=== PATIENT | female | born 1950 | race Caucasian/White ===

== ENCOUNTER 2018-09-01 09:03 | Observation (INO) ==
[2018-09-01] MEDS ORDERED: Nitroglycerin 0.4 MG TAB.SUBL SL ONE (09:16)
[2018-09-01] MEDS ORDERED: Aspirin 81 MG TAB.CHEW PO ONE (09:16)
--- NOTE | 2018-09-01 09:22 | Emergency Department Note ---
Disposition Clinical Impression: Chest pain Qualifiers: Chest pain type: unspecified Qualified Code(s): R07.9 - Chest pain, unspecified Disposition: Admitted As Inpatient Condition: Fair Time of Disposition: 19:45 General Adult HPI - General Chief complaint: ED Chest Pain Stated complaint: Chest Pain Time Seen by Provider: 09/01/18 09:04 Source: patient, EMS Mode of arrival: EMS Limitations: no limitations Nursing Notes Reviewed: Yes Vital Signs Reviewed: Yes - History of Present Illness HPI Narrative: Patient is a 67-year-old female past medical history of hypertension is the primary for evaluation of chest pressure that started at 7:00 AM this morning. Patient states that she is brushing her teeth when she had gradual onset of substernal, pressure-like pain with radiation to the left arm. States at that time the intensity was a 7/10. States he take a shower to see without improve her pain in which it did not. States that she checked her blood pressure at home and she was in 180s systolic and her heart rate was also mildly elevated. Upon arrival to the emergency department the patient states her symptoms have almost resolved. She received no aspirin or nitroglycerin. States her intensity is now a 2/10. States that she has had a stress test in the past but none recently. Pain Scale: 2 - Related Data Home Medications Medication Instructions Recorded Confirmed Anastrozole [Arimidex] 1 mg PO DAILY 09/01/18 09/01/18 Ca/D3/Mag#11/Zinc/Swaging Machine Adjuster/Tray/Bor 1 each PO DAILY 09/01/18 09/01/18 [Caltrate 600+D Plus Tablet] Calcium Polycarbophil [Fibercon] 1,250 mg PO BID 09/01/18 09/01/18 Celecoxib [Celebrex] 200 mg PO BID 09/01/18 09/01/18 Cetirizine HCl [Zyrtec] 10 mg PO DAILY 09/01/18 09/01/18 Cyanocobalamin (B-12) [Vitamin B12] 1,000 mcg IM QMONTH 09/01/18 09/01/18 Lisinopril/Hydrochlorothiazide 1 tab PO DAILY 09/01/18 09/01/18 [Zestoretic 20-25 mg Tablet] Pantoprazole Sodium 40 mg PO DAILY 09/01/18 09/01/18 Allergies Allergy/AdvReac Type Severity Reaction Status Date / Time No Known Allergies Allergy Verified 05/02/18 09:33 All systems ED: reviewed and negative except as stated. Review of Systems: As Per HPI Constitutional: Denies: fever, chills Cardiovascular: Denies: chest pain, palpitations, dyspnea on exertion Respiratory: Reports: cough (Chronic). Denies: dyspnea, wheezes, sputum production Gastrointestinal: Denies: abdominal pain, nausea, vomiting Musculoskeletal: Denies: back pain, neck pain Integumentary: Denies: rash Past Medical History - Past Medical History Attestation: Yes The following information was validated with the patient. Medical history: Reports: cancer, hypertension - Social History Smoking Status: Never smoker Smokeless Tobacco Status: No Alcohol use: Reports: none Drug use: Reports: none Physical Exam CONSTITUTIONAL: Well-appearing; well-nourished; A&O X 3, in no apparent distress HEAD: Normocephalic; atraumatic EYES: PERRL, no scleral icterus NOSE: The nose is normal in appearance without rhinorrhea NECK: No JVD or distended neck veins RESP: Normal chest excursion with respiration; breath sounds clear and equal bilaterally; no wheezes, rhonchi, or rales CARD: Regular rhythm, without murmurs, rub or gallop ABD: Non-distended; non-tender, soft, without rigidity, rebound or guarding,no pulsatile mass CHEST: No pain with palpation SKIN: Normal for age and race; warm and dry without diaphoresis ; no apparent lesions EXTREMITIES: Pulses are 2 plus and equal times 4 extremities, no peripheral edema or calf muscle pain - General Limitations: no limitations General appearance: alert, in no apparent distress Course Course Narrative: Patient will undergo evaluation for her chest pain. Given that her symptoms are moderately suspicious for cardiac ideology, her age as well as her risk factors she is presenting as a moderate HEART score. The patient's will need to come in for further evaluation pending results of labs and imaging. Her initial EKG is nonischemic at this time. She will be given a full dose of aspirin as well as nitroglycerin trial. Vital Signs Temperature 97.9 F 09/01/18 09:07 Pulse Rate 86 09/01/18 09:07 Respiratory Rate 16 09/01/18 09:07 Blood Pressure 179/87 09/01/18 09:07 O2 Sat by Pulse Oximetry 100 09/01/18 09:07 Temperature 98.3 F 09/01/18 13:30 Pulse Rate 83 09/01/18 13:30 Respiratory Rate 16 09/01/18 13:30 Blood Pressure 134/74 09/01/18 13:30 O2 Sat by Pulse Oximetry 96 09/01/18 13:30 Oxygen Delivery Oxygen Delivery Room Air Medical Decision Making - Medical Records Medical records reviewed: Yes I reviewed the patient's medical records. - Lab Data Lab results reviewed: Yes I reviewed the patient's lab results. Result diagrams: 09/01/18 10:22 09/01/18 10:22 Lab Results 09/01/18 09/01/18 Range/Units 10:22 10:22 WBC 8.7 (4.3-11.1) K/mcL RBC 4.06 (3.82-4.97) M/mcL Hgb 11.1 L (11.5-15.4) g/dL Hct 34.2 L (35.3-44.9) % MCV 84.2 (83.0-100.0) fL MCH 27.3 L (28.0-33.3) pg MCHC 32.5 (31.6-35.5) g/dL RDW 15.0 H (11.5-14.5) % Plt Count 277 (140-400) K/mcL MPV 10.7 (9.4-12.4) fL Immature Gran % 0.3 (0-4) % Seg Neutrophils % 85.2 % Lymphocytes % 9.0 % Monocytes % 4.4 % Eosinophils % 0.6 % Basophils % 0.5 % Neutrophils # 7.4 (1.6-8.9) K/mcL Lymphocytes # 0.8 (0.6-4.6) K/mcL Monocytes # 0.4 (0.0-1.3) K/mcL Eosinophils # 0.1 (0.0-0.6) K/mcL Basophils # 0.0 (0.0-0.2) K/mcL Sodium 136 (136-145) mEq/L Potassium 3.8 (3.5-5.1) mEq/L Chloride 103 (98-107) mEq/L Carbon Dioxide 27 (23-29) mEq/L BUN 16 (8-23) mg/dL Creatinine 0.73 (0.60-1.20) mg/dL Est GFR ( Amer) > 60 (> 60) Est GFR (Non-Af Amer) > 60 (> 60) BUN/Creatinine Ratio 22 (6-26) Glucose 123 H (70-105) mg/dL Calculated Osmolality 285 (280-300) Calcium 9.5 (8.6-10.3) mg/dL Troponin I < 0.03 (< 0.04) ng/mL - Radiology Data Radiology results reviewed: Yes I reviewed the patient's radiology results. Chest X-Ray 09/01/18 09:16 IMPRESSION: No acute process. D/ / Christian Granados MD / Christian Granados MD Interpreting Provider: Christian Granados MD - EKG Data EKG #1 EKG attestation: Yes I reviewed and interpreted this EKG. EKG results narrative: EKG done at 9:08 shows sinus rhythm at a rate of 85 bpm. Normal axis. Intervals within normal limits. No signs of ST elevation, ST depression or Q waves present.
[2018-09-01] MEDS ORDERED: 0.9 % Sodium Chloride 500 ML IVC ONE (09:36)
[2018-09-01 10:39] LABS: Basophils % 0.5 %; Eosinophils # 0.1 K/mcL (0.0-0.6); Eosinophils % 0.6 %; Hematocrit 34.2 % (35.3-44.9); Hemoglobin 11.1 g/dL (11.5-15.4); Immature Granulocytes % 0.3 % (0-4); Lymphocytes # 0.8 K/mcL (0.6-4.6); Mean Corpuscular HGB Conc 32.5 g/dL (31.6-35.5); Mean Corpuscular Hemoglobin 27.3 pg (28.0-33.3); Mean Corpuscular Volume 84.2 fL (83.0-100.0); Mean Platelet Volume 10.7 fL (9.4-12.4); Monocytes # 0.4 K/mcL (0.0-1.3); Monocytes % 4.4 %; Neutrophils # 7.4 K/mcL (1.6-8.9); Platelet Count 277 K/mcL (140-400); Red Blood Count 4.06 M/mcL (3.82-4.97); Segmented Neutrophils % 85.2 %
[2018-09-01 10:58] LABS: BUN/Creatinine Ratio 22 (6-26); Blood Urea Nitrogen 16 mg/dL (8-23); Calcium 9.5 mg/dL (8.6-10.3); Carbon Dioxide 27 mEq/L (23-29); Chloride 103 mEq/L (98-107); Glucose 123 mg/dL (70-105); Osmolality,Calculated 285 (280-300); Potassium 3.8 mEq/L (3.5-5.1); Sodium 136 mEq/L (136-145); eGFR For Non-African Americans > 60 (> 60)
[2018-09-01 10:59] LABS: Troponin I < 0.03 ng/mL (< 0.04)
--- NOTE | 2018-09-01 11:27 | Emergency Department Note ---
Disposition Clinical Impression: Chest pain Qualifiers: Chest pain type: unspecified Qualified Code(s): R07.9 - Chest pain, unspecified Disposition: Admitted As Inpatient Condition: Fair Forms: ED Satisfaction Letter General Adult HPI - General Chief complaint: ED Chest Pain Stated complaint: Chest Pain Time Seen by Provider: 09/01/18 09:04 Source: patient, EMS Mode of arrival: EMS Limitations: no limitations - History of Present Illness Pain Scale: 2 - Related Data Home Medications Medication Instructions Recorded Confirmed Anastrozole 05/02/18 Caltrate 600 + D Soft Chew Tab 05/02/18 Celebrex 05/02/18 Fiber 05/02/18 Lisinopril 05/02/18 Prevacid 05/02/18 Vitamin B12 05/02/18 Zyrtec 05/02/18 Previous Rx's Medication Instructions Recorded Amoxicillin 875 mg PO BID #20 tablet 05/02/18 Benzonatate [Tessalon] 200 mg PO TID PRN #20 capsule 05/02/18 Ondansetron ODT [Zofran ODT] 4 mg SL Q6HR PRN #10 tab.rapdis 05/02/18 Pantoprazole Sodium 20 mg PO DAILY #14 tablet. 05/02/18 Allergies Allergy/AdvReac Type Severity Reaction Status Date / Time No Known Allergies Allergy Verified 05/02/18 09:33 Constitutional: Denies: fever, chills Cardiovascular: Denies: chest pain, palpitations, dyspnea on exertion Respiratory: Reports: cough (Chronic). Denies: dyspnea, wheezes, sputum production Gastrointestinal: Denies: abdominal pain, nausea, vomiting Musculoskeletal: Denies: back pain, neck pain Integumentary: Denies: rash Past Medical History - Past Medical History Medical history: Reports: cancer, hypertension - Social History Smoking Status: Never smoker Smokeless Tobacco Status: No Alcohol use: Reports: none Drug use: Reports: none Physical Exam - General Limitations: no limitations General appearance: alert, in no apparent distress Course Vital Signs Temperature 97.9 F 09/01/18 09:07 Pulse Rate 86 09/01/18 09:07 Respiratory Rate 16 09/01/18 09:07 Blood Pressure 179/87 09/01/18 09:07 O2 Sat by Pulse Oximetry 100 09/01/18 09:07 Temperature 97.9 F 09/01/18 09:07 Pulse Rate 86 09/01/18 09:07 Respiratory Rate 16 09/01/18 09:07 Blood Pressure 179/87 09/01/18 09:07 O2 Sat by Pulse Oximetry 100 09/01/18 09:07 Oxygen Delivery Oxygen Delivery Room Air Medical Decision Making - Lab Data Result diagrams: 09/01/18 10:22 09/01/18 10:22 Lab Results 09/01/18 09/01/18 Range/Units 10:22 10:22 WBC 8.7 (4.3-11.1) K/mcL RBC 4.06 (3.82-4.97) M/mcL Hgb 11.1 L (11.5-15.4) g/dL Hct 34.2 L (35.3-44.9) % MCV 84.2 (83.0-100.0) fL MCH 27.3 L (28.0-33.3) pg MCHC 32.5 (31.6-35.5) g/dL RDW 15.0 H (11.5-14.5) % Plt Count 277 (140-400) K/mcL MPV 10.7 (9.4-12.4) fL Immature Gran % 0.3 (0-4) % Seg Neutrophils % 85.2 % Lymphocytes % 9.0 % Monocytes % 4.4 % Eosinophils % 0.6 % Basophils % 0.5 % Neutrophils # 7.4 (1.6-8.9) K/mcL Lymphocytes # 0.8 (0.6-4.6) K/mcL Monocytes # 0.4 (0.0-1.3) K/mcL Eosinophils # 0.1 (0.0-0.6) K/mcL Basophils # 0.0 (0.0-0.2) K/mcL Sodium 136 (136-145) mEq/L Potassium 3.8 (3.5-5.1) mEq/L Chloride 103 (98-107) mEq/L Carbon Dioxide 27 (23-29) mEq/L BUN 16 (8-23) mg/dL Creatinine 0.73 (0.60-1.20) mg/dL Est GFR ( Amer) > 60 (> 60) Est GFR (Non-Af Amer) > 60 (> 60) BUN/Creatinine Ratio 22 (6-26) Glucose 123 H (70-105) mg/dL Calculated Osmolality 285 (280-300) Calcium 9.5 (8.6-10.3) mg/dL Troponin I < 0.03 (< 0.04) ng/mL Attestation Statement - Attestation Attestation: I examined this patient and my medical decision-making was reviewed with the Resident Physician. I agree with the documented findings, disposition and treatment plan as described except to the extent set forth below. 67 year old female prsents to the ED with complaints of chest pain that started earlier this mornign when she was in the shower and had an elevated blood pressure at that time and now her chest pain has resolved in additint to normalization of the blood presusre and heart rate. Sulma has risk factors for ACS and because she has a moderate heart score we will admit to medicine for futher testing. Sulma has been given ASA and will be admitted to medicine
[2018-09-01] MEDS ORDERED: Naloxone 0.4 MG/ML INJ IVP PRN (12:58)
--- NOTE | 2018-09-01 13:13 | Internal Med History&Physical ---
Date of Encounter: 09/01/18 Time of Encounter: 13:10 Internal Medicine - H&P: HPI Chief complaint: chest pain Admitted From: Home History of present illness: Ms. Grande is a 67 year old female with PMH HTN and breast cancer presented to [facility] on 09/01/2018 with complaints of chest pain. She was placed in observation status for further work-up and treatment. Information obtained from chart review and patient report. Patient says she woke up this morning with chest heaviness. Located to the left side and radiated to left arm. She also reported shortness of breath and felt like she was having a hard time catching her breath. Says she got into a shower hoping that would make her feel better however chest heaviness persisted and worsened so the EMS was called. No alleviating or aggravating risk factors. Says she took her blood pressure she was waiting for the EMS in SBP was in the 200s. Says she feels better all my exam, chest pain and shortness of breath completely resolved. Past Med Surg Social Fam HX - Past Medical History Medical history: cancer, hypertension Additional medical history: breast cancer - Past Surgical History Additional surgical history: spinal fusion - Social History Smoking Status: Never smoker Smokeless Tobacco Status: No Alcohol use: none Drug use: none - Family History Mother Hx Family Cardiac Disorders: Yes (htn) Father Hx Family Cardiac Disorders: Yes (mi) Internal Medicine - H&P: Meds Anastrozole [Arimidex] 1 mg PO DAILY 09/01/18 [History] Ca/D3/Mag#11/Zinc/Black Puller/Tray/Bor [Caltrate 600+D Plus Tablet] 1 each PO DAILY 09/01/18 [History] Calcium Polycarbophil [Fibercon] 1,250 mg PO BID 09/01/18 [History] Celecoxib [Celebrex] 200 mg PO BID 09/01/18 [History] Cetirizine HCl [Zyrtec] 10 mg PO DAILY 09/01/18 [History] Cyanocobalamin (B-12) [Vitamin B12] 1,000 mcg IM QMONTH 09/01/18 [History] Lisinopril/Hydrochlorothiazide [Zestoretic 20-25 mg Tablet] 1 tab PO DAILY 09/01/18 [History] Pantoprazole Sodium 40 mg PO DAILY 01/06/19 [History] Allergy/AdvReac Type Severity Reaction Status Date / Time No Known Allergies Allergy Verified 05/02/18 09:33 All Systems PM: A 12-system review of systems was performed and is negative for pertinent findings except as documented above in the HPI. - Cardiovascular Cardiovascular ROS IM: chest pain, dyspnea on exertion - Constitutional Vitals: Temp Pulse Resp BP Pulse Ox 97.9 F 86 18 144/80 100 09/01/18 09:07 09/01/18 09:07 09/01/18 12:34 09/01/18 12:34 09/01/18 09:07 General appearance: Present: A&O X 3, pleasant, no acute distress Exam: . - Head Head exam: Present: atraumatic, normocephalic - Eye Eye exam: Present: PERRL, conjuntiva pink, sclera anicteric Pupils: Present: PERRL - Neck Neck exam general surgery: Present: supple, trachea midline. Absent: lymphadenopathy - Respiratory Respiratory exam: Present: CTAB. Absent: accessory muscle use, rales, rhonchi, wheezes - Cardiovascular Cardiovascular exam: Present: RRR, +S1, +S2. Absent: diastolic murmur, gallop, rubs, systolic murmur - GI/Abdominal GI/Abdominal exam: Present: normal bowel sounds, soft, no peritoneal signs. Absent: distended, tenderness - Extremities Exam Extremities exam: Present: warm, radial pulses palpable and symmetrical. Absent: calf tenderness, cyanotic, pedal edema - Neurological Exam Neurological exam: Present: CN II-XII intact, oriented X3, no focal deficits. Absent: pronater drift, facial droop, speech deficit - Skin Skin exam: Present: dry, intact Internal Med - H&P Results - Labs CBC & Chem 7: 09/01/18 10:22 09/01/18 10:22 Labs: Short CBC 09/01/18 Range/Units 10:22 WBC 8.7 (4.3-11.1) K/mcL Hgb 11.1 L (11.5-15.4) g/dL Hct 34.2 L (35.3-44.9) % Plt Count 277 (140-400) K/mcL Neutrophils # 7.4 (1.6-8.9) K/mcL BMP 09/01/18 10:22 Sodium 136 Potassium 3.8 Chloride 103 Carbon Dioxide 27 BUN 16 Creatinine 0.73 Glucose 123 H Calcium 9.5 Cardiac Enzymes 09/01/18 Range/Units 10:22 Troponin I < 0.03 (< 0.04) ng/mL - Impressions ITS Impressions Chest X-Ray 09/01/18 09:16 IMPRESSION: No acute process. D/ / Christian Granados MD / Christian Granados MD Interpreting Provider: Christian Granados MD - Assessment and plan (1) Chest pain Current Visit: Yes Status: Acute Assessment and plan: presented with chest haviness that started day of arrival; resolved in ED. initial troponin negative. EKG without acute ST changes. Cycle troponins. Check echo. NPO at midnight. Stress test in the morning. Qualifiers: Chest pain type: unspecified Qualified Code(s): R07.9 - Chest pain, unspecified (2) HTN (hypertension) Current Visit: Yes Status: Acute Assessment and plan: per hx. BP elevated in ED. patient also reported BP elevated prior to arrival. Cont home BP medications. Monitor BP and titrate PRN. Add PRN IV hydralazine Qualifiers: Hypertension type: essential hypertension Qualified Code(s): I10 - Essential (primary) hypertension (3) Breast cancer Current Visit: Yes Status: Acute Assessment and plan: per hx. Follows with [facility]. Cont home Arimidex Qualifiers: Breast location: unspecified site of breast Estrogen receptor status: unspecified Patient sex: female Laterality: unspecified laterality Qualified Code(s): C50.919 - Malignant neoplasm of unspecified site of unspecified female breast (4) DVT prophylaxis Current Visit: Yes Status: Acute Assessment and plan: lovenox - Time Spent With Patient Total time spent is greater than 50% in coordination of care (as documented) at patient's floor/unit and/or counseling patient:
[2018-09-01] MEDS: Celecoxib 200 MG CAPSULE PO SCH (21:05)
[2018-09-02 05:24] LABS: Hematocrit 35.8 % (35.3-44.9); Hemoglobin 11.1 g/dL (11.5-15.4); Mean Corpuscular Hemoglobin 26.3 pg (28.0-33.3); Mean Corpuscular Volume 84.8 fL (83.0-100.0); Mean Platelet Volume 10.9 fL (9.4-12.4); Platelet Count 251 K/mcL (140-400); Red Blood Count 4.22 M/mcL (3.82-4.97); Red Cell Distribution Width 15.2 % (11.5-14.5)
[2018-09-02 05:44] LABS: Alanine Aminotransferase 9 Units/L (7-52); Albumin 3.6 g/dL (3.5-5.7); Albumin/Globulin Ratio 1.5 (1.1-2.2); Alkaline Phosphatase 59 Units/L (34-104); Aspartate Amino Transferase 14 Units/L (13-39); BUN/Creatinine Ratio 20 (6-26); Bilirubin,Total 0.3 mg/dL (0.3-1.0); Blood Urea Nitrogen 13 mg/dL (8-23); Calcium 9.5 mg/dL (8.6-10.3); Carbon Dioxide 26 mEq/L (23-29); Chloride 104 mEq/L (98-107); Globulin 2.4 g/dL (2.4-3.5); Glucose 120 mg/dL (70-105); Osmolality,Calculated 285 (280-300); Potassium 3.7 mEq/L (3.5-5.1); Sodium 137 mEq/L (136-145); eGFR For Non-African Americans > 60 (> 60)
[2018-09-02] MEDS ORDERED: Regadenoson 0.4 MG/5 ML SYRINGE IVP ONE (05:45)
[2018-09-02] MEDS ORDERED: *HR* Enoxaparin 40 MG/0.4 ML SYRINGE SQ SCH (06:00)
[2018-09-02 06:40] VITALS: BP 143/77
[2018-09-02] MEDS ORDERED: Aspirin 81 MG TAB.CHEW PO SCH (09:00)
[2018-09-02] MEDS ORDERED: Anastrozole 1 MG TABLET PO SCH (09:00)
[2018-09-02] MEDS: Celecoxib 200 MG CAPSULE PO SCH (10:47)
--- NOTE | 2018-09-02 11:10 | Discharge Summary ---
- NOTES TO OUTPATIENT PROVIDER Notes to Outpatient Provider: Follow with PCP in one week Orders not resulted at time of discharge: Pending orders 09/01/18 13:00 NM robert perf SPECT multi [NM] Routine EV echocardiogram Routine Date of Encounter: 09/02/18 Time of Encounter: 11:00 - Discharge Diagnosis (1) Chest pain Priority: Primary Status: Acute Qualifiers: Chest pain type: unspecified Qualified Code(s): R07.9 - Chest pain, unspecified (2) HTN (hypertension) Priority: Secondary Status: Acute Qualifiers: Hypertension type: essential hypertension Qualified Code(s): I10 - Essential (primary) hypertension (3) Breast cancer Priority: Secondary Status: Acute Qualifiers: Breast location: unspecified site of breast Estrogen receptor status: unspecified Patient sex: female Laterality: unspecified laterality Qualified Code(s): C50.919 - Malignant neoplasm of unspecified site of unspecified female breast (4) DVT prophylaxis Priority: Secondary Status: Acute Hospital course: Ms. Grande is a 67 year old female with PMH of HTN, GERD and breast cancer presented to [facility] ER on 09/01/2018 with complaints of chest pain. Patient stated she woke up with chest heaviness, located to the left side and radiated to left arm. 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 Her serial troponin came back is negative. Her EKG to did not show any acute ischemic changes. She did go for nuclear stress test which came back is negative for any ischemia/infarction. She does have mild musculoskeletal pain too for which she has been taking Celebrex. Her epigastric discomfort seems to most likely GERD related so recommend to take PPI BID. - Time Spent with Patient Total time spent providing and/or coordinating discharge services: - Discharge Medications Prescriptions: Aspirin 81 mg PO DAILY #30 tab.chew Home Medications: Anastrozole [Arimidex] 1 mg PO DAILY 09/01/18 [History] Ca/D3/Mag#11/Zinc/Utility Locator/Tray/Bor [Caltrate 600+D Plus Tablet] 1 each PO DAILY 09/01/18 [History] Calcium Polycarbophil [Fibercon] 1,250 mg PO BID 09/01/18 [History] Celecoxib [Celebrex] 200 mg PO BID 09/01/18 [History] Cetirizine HCl [Zyrtec] 10 mg PO DAILY 09/01/18 [History] Cyanocobalamin (B-12) [Vitamin B12] 1,000 mcg IM QMONTH 09/01/18 [History] Lisinopril/Hydrochlorothiazide [Zestoretic 20-25 mg Tablet] 1 tab PO DAILY 09/01/18 [History] Pantoprazole Sodium 40 mg PO DAILY 09/01/18 [History] Aspirin 81 mg PO DAILY #30 tab.chew 09/02/18 [Rx] Allergies/Adverse Reactions: Allergy/AdvReac Type Severity Reaction Status Date / Time No Known Allergies Allergy Verified 05/02/18 09:33 Date of admission: 09/01/18 12:07 Primary care physician: Bob Anthony MD - Constitutional Vitals: Temp Pulse Resp BP Pulse Ox 98.3 F 84 16 143/77 97 09/02/18 06:39 09/02/18 06:39 09/02/18 06:39 09/02/18 06:39 09/02/18 06:39 General appearance: Present: A&O X 3, pleasant, no acute distress Exam: Gen: Alert, awake, Oriented to time,place and person Chest: Diminished breath sounds B/L, No wheezing, No crackles, No rales Heart: S1S2+ RRR No murmurs Abd: Soft, NT, BS +, No organomegaly Ext: No edema, pulses are palpable, No calf tenderness Neuro : Benign findings Skin: No rash. - Patient Status Disposition: Home, Self-Care Condition: Fair - Discharge Instructions Instructions: Chest Pain (DC) Follow Up With: Bob Anthony MD [Primary Care Provider] - - Diet and Activity Activity: increase activity as tolerated Diet: low salt diet
--- NOTE | 2018-09-02 16:18 | Electrocardiograph Report ---
[address] [address] Test Date: 2018-09-01 Pat Name: Nicolle Grande Department: EXAM4 Room: 3B64 Gender: F Program Proposals Coordinator: : 1950 Requested By: Jaime Winslow Order Number: [id number] Reading MD: Tuan Wan Measurements Intervals [place] Rate: 85 P: 58 MN: 165 QRS: 37 QRSD: 97 T: 61 QT: 353 QTc: 420 Interpretive Statements Sinus rhythm Electronically Signed On 09-02-2018 16:17:33 EST by Tuan Wan
== END 2018-09-02 11:40 | disposition home or self-care (01) ==
LOC: EMEROOARM 09:03 → 3BNU 09:03 → SUATTDRO 12:07 → 3BNU 12:34
PROVIDERS: ADMIT Internal Medicine; ATTEND Family Medicine